=== PATIENT | female | born 2000 | race Caucasian/White ===

== ENCOUNTER 2018-05-10 19:17 | Emergency (ER) | payer MEDICAID ==
[~2018-05-10] VITALS: Ht 160 cm; Wt 99.8 kg
[~2018-05-10 19:17] MED LIST: ONDA4TAB6 PO; ONDA8TAB6 PO
[2018-05-10 19:54] LABS: BASOPHILS # (AUTO) 0.1 X10'3 (0-0.2); BASOPHILS % (AUTO) 0.7 % (0-1); EOSINOPHILS # (AUTO) 0.1 X10'3 (0-0.9); EOSINOPHILS % (AUTO) 1.3 % (0-6); HEMATOCRIT 43.5 % (35.0-45.0); HEMOGLOBIN 14.7 g/dl (12.0-16.0); LYMPHOCYTES # (AUTO) 1.9 X10'3 (1.1-4.8); MEAN CORPUSCULAR HEMOGLOBIN 28.6 PG (27.0-31.0); MEAN CORPUSCULAR HGB CONC 33.7 % (33.0-36.5); MEAN CORPUSCULAR VOLUME 84.9 FL (78-98); MEAN PLATELET VOLUME 9.2 FL (7.4-10.4); MONOCYTES # (AUTO) 0.8 X10'3 (0-0.9); NEUTROPHILS # (AUTO) 4.9 X10'3 (1.8-7.7); PLATELET COUNT 378 X10'3 (140-440); RED BLOOD COUNT 5.12 X10'6 (4.20-5.60); RED CELL DISTRIBUTION WIDTH 13.8 % (11.5-14.5); WHITE BLOOD COUNT 7.7 X10'3 (4.5-11.0)
[2018-05-10 20:05] LABS: ALANINE AMINOTRANSFERASE 19 U/L (12-78); ALKALINE PHOSPHATASE 71 IU/L (20-180); ANION GAP 7 (8-16); ASPARTATE AMINO TRANSFERASE 9 U/L (10-37); BILIRUBIN,TOTAL 0.4 MG/DL (0.1-1.0); BLOOD UREA NITROGEN 9 MG/DL (7-18); BUN/CREATININE RATIO 11.7 (6.6-38.0); CALCIUM 9.1 MG/DL (8.5-10.1); CHLORIDE 101 MMOL/L (99-107); CREATININE 0.77 MG/DL (0.40-0.90); GLUCOSE 100 MG/DL (70-104); LIPASE 73 U/L (73-393); POTASSIUM 3.3 MMOL/L (3.5-5.1); SODIUM 137 MMOL/L (135-145); TOTAL CARBON DIOXIDE 29.5 MMOL/L (24-32); TOTAL PROTEIN 7.9 G/DL (6.4-8.2); eGFR > 90 ML/MIN
[2018-05-10 20:06] LABS: CLARITY,URINE SLIGHTLY CLOUDY (Clear); COLOR,URINE YELLOW (Yellow); GLUCOSE, URINE NEGATIVE (Neg); KETONES,URINE TRACE mg/dl (Neg); LEUKOCYTE ESTERASE ,URINE SMALL (Neg); NITRITES, URINE NEGATIVE (Neg); OCCULT BLOOD,URINE SMALL (Neg); PH,URINE 5.5 (4.8-8.0); PROTEIN,URINE 30 mg/dl (Neg)
[2018-05-10 20:07] LABS: URINE HCG NEGATIVE (NEG)
[2018-05-10 20:09] LABS: INR 1.1 INR; PROTHROMBIN TIME 11.4 SECONDS (9.0-12.0)
[2018-05-10 20:28] LABS: UA COLLECTION TYPE CLN CATCH MIDSTREAM
[2018-05-10 20:29] LABS: BACTERIA,URINE FEW /HPF (Neg); SQUAMOUS EPITHELIAL CELL,UR MODERATE /LPF (FEW)
[2018-05-10] MEDS ORDERED: mag hydrox/Alum hydrox/simeth 30ml oral suspension PO ONE (20:45)
[2018-05-10] MEDS ORDERED: ciprofloxacin 250mg tablet PO ONE (20:55)
[2018-05-10] MEDS ORDERED: CIPR-230 PO (20:55)
[2018-05-10 21:08] VITALS: BP 150/93
== END 2018-05-10 21:09 | disposition home or self-care (01) ==
LOC: ER 19:17
DX: N39.0 Urinary tract infection, site not specified (principal); K29.70 Gastritis, unspecified, without bleeding; Z79.2 Long term (current) use of antibiotics; Z79.899 Other long term (current) drug therapy
CPT/HCPCS: 36415; 80053; 81001; 81025; 83690; 85025; 85610; 87088; 99283

== ENCOUNTER 2020-12-14 07:31 | Emergency (ER) | payer MEDICAID ==
[~2020-12-14] VITALS: Ht 160 cm; Wt 103.5 kg
[2020-12-14] MEDS ORDERED: acetaminophen 325mg tablet PO STA (09:05)
[2020-12-14] MEDS ORDERED: ALBUTEROL INHALER 1 PUFF/90 MCG INHALER IH PRN (09:05)
[2020-12-14] MEDS ORDERED: normal saline 1000ML IV soln IV ONE (09:05)
[2020-12-14 09:26] LABS: BASOPHILS # (AUTO) 0.1 X10'3 (0-0.2); BASOPHILS % (AUTO) 0.5 % (0-1); EOSINOPHILS # (AUTO) 0.5 X10'3 (0-0.9); EOSINOPHILS % (AUTO) 4.5 % (0-6); HEMATOCRIT 43.2 % (35.0-45.0); HEMOGLOBIN 14.7 g/dl (12.0-16.0); LYMPHOCYTES # (AUTO) 2.1 X10'3 (1.1-4.8); LYMPHOCYTES % (AUTO) 17.4 % (21-51); MEAN CORPUSCULAR HEMOGLOBIN 28.6 PG (27.0-31.0); MEAN CORPUSCULAR VOLUME 84.1 FL (78-98); MEAN PLATELET VOLUME 8.9 FL (7.4-10.4); MONOCYTES # (AUTO) 0.8 X10'3 (0-0.9); MONOCYTES % (AUTO) 6.4 % (2-12); NEUTROPHILS # (AUTO) 8.6 X10'3 (1.8-7.7); NEUTROPHILS % (AUTO) 71.2 % (42-75); PLATELET COUNT 375 X10'3 (140-440); RED BLOOD COUNT 5.13 X10'6 (4.20-5.60); RED CELL DISTRIBUTION WIDTH 13.8 % (11.5-14.5)
[2020-12-14 09:42] LABS: ALANINE AMINOTRANSFERASE 19 U/L (12-78); ALBUMIN 3.7 G/DL (3.4-5.0); ALBUMIN/GLOBULIN RATIO 0.9 (1.1-1.5); ANION GAP 10 (8-16); ASPARTATE AMINO TRANSFERASE 12 U/L (10-37); BILIRUBIN,TOTAL 0.4 MG/DL (0.1-1.0); BLOOD UREA NITROGEN 7 MG/DL (7-18); BUN/CREATININE RATIO 12.7 (6.6-38.0); CALCIUM 8.6 MG/DL (8.5-10.1); CHLORIDE 105 MMOL/L (99-107); CREATININE 0.55 MG/DL (0.40-0.90); GLUCOSE 98 MG/DL (70-104); POTASSIUM 3.3 MMOL/L (3.5-5.1); SODIUM 139 MMOL/L (135-145); TOTAL CARBON DIOXIDE 24.1 MMOL/L (24-32); TOTAL PROTEIN 7.7 G/DL (6.4-8.2); eGFR > 90 ML/MIN
[2020-12-14 10:07] LABS: ALKALINE PHOSPHATASE 82 IU/L (46-116)
[2020-12-14] MEDS ORDERED: PRED20TA PO (12:08)
[2020-12-14] MEDS ORDERED: ALBU6.7H9 INH (12:08)
[2020-12-14 12:43] VITALS: BP 150/102
== END 2020-12-14 12:48 | disposition home or self-care (01) ==
LOC: ER 07:32
DX: J02.9 Acute pharyngitis, unspecified (principal); Z20.822 Contact with and (suspected) exposure to COVID-19; B34.9 Viral infection, unspecified; R05 Cough; R06.02 Shortness of breath; R51.9 Headache, unspecified; J45.909 Unspecified asthma, uncomplicated; Z79.899 Other long term (current) drug therapy
CPT/HCPCS: 36415; 71045; 80053; 84145; 85025; 87635; 93005; 96360; 96361; 99285; C9803; J7030

== ENCOUNTER 2021-10-28 14:33 | Emergency (ER) | payer MEDICAID ==
[~2021-10-28] VITALS: Ht 162.6 cm; Wt 101.3 kg
[~2021-10-28 14:33] MED LIST changes: +ALBU6.7H9 INH; -ONDA4TAB6 PO; -ONDA8TAB6 PO
== END 2021-10-28 15:49 | disposition home or self-care (01) ==
LOC: ER 14:33
DX: J06.9 Acute upper respiratory infection, unspecified (principal); R51.9 Headache, unspecified; R09.89 Other specified symptoms and signs involving the circulatory and respiratory systems; R07.89 Other chest pain; H92.03 Otalgia, bilateral; R50.9 Fever, unspecified; R11.0 Nausea; R05.9 Cough, unspecified; J45.909 Unspecified asthma, uncomplicated; Z79.899 Other long term (current) drug therapy
CPT/HCPCS: 99282

== ENCOUNTER 2023-11-05 10:02 | Emergency (ER) | payer MEDICAID ==
[~2023-11-05] VITALS: Ht 175.3 cm; Wt 103.8 kg
[~2023-11-05 10:02] MED LIST changes: +ALBU6.7H14 INH; -ALBU6.7H9 INH
[2023-11-05 10:16] VITALS: BP 141/88; PULSE 125; RESP 18; TEMP 97.8; O2SAT 99
== END 2023-11-05 13:15 | disposition left against medical advice (07) ==
LOC: ER 10:03
DX: I10 Essential (primary) hypertension (principal); R11.2 Nausea with vomiting, unspecified; Z53.21 Procedure and treatment not carried out due to patient leaving prior to being seen by health care provider